=== PATIENT | female | born 1965 | race Caucasian/White ===

== ENCOUNTER 2025-05-26 21:01 | Emergency (ER) | payer MEDICARE, SELFPAY ==
[2025-05-26 21:16] VITALS: BP 140/85; PULSE 76; RESP 15; TEMP 37.4; O2SAT 95; BMI 27.8
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
[2025-05-26 22:57] LABS: Culture Indicated Urine Cult Not Indicated
== END 2025-05-26 23:49 | disposition home or self-care (01) ==
PROVIDERS: Emergency Provider Emergency Medicine
DX: B02.9 Zoster without complications (principal); R59.0 Localized enlarged lymph nodes; R53.83 Other fatigue; R20.2 Paresthesia of skin; R30.0 Dysuria; R39.11 Hesitancy of micturition; R35.0 Frequency of micturition
CPT/HCPCS: 81003; 81015; 99281; 99283